=== PATIENT | male | born 1995 | race Caucasian/White ===

== ENCOUNTER 2016-08-09 20:08 | Emergency (ER) | payer BC, OTHER ==
[2016-08-09] MEDS ORDERED: CEPHALEXIN 500MG PREPACK#4 BTL TAKEHOME ONE (21:38)
--- NOTE | 2016-08-09 21:39 | EDPHY ---
H & P Stated Complaint: LEFT HAND LACERATION Time Seen by Provider: 08/09/16 20:30 HPI/ROS: CHIEF COMPLAINT: Left hand laceration HISTORY OF PRESENT ILLNESS: 21-year-old male presents emergency department with a laceration to the palm of his left hand. Patient was rock climbing and sustained a laceration to his hand that was in a crack. This was a pressure and ripping injury. Patient denies numbness or tingling in his hand. He is [id number], he denies other complaints. Patient reports his tetanus is up-to-date. Source: Patient Exam Limitations: No limitations - Personal History Current Tetanus/Diphtheria Vaccine: Yes Current Tetanus Diphtheria and Acellular Pertussis (TDAP): Yes - Medical/Surgical History Hx Asthma: No Hx Chronic Respiratory Disease: No Hx Diabetes: No Hx Cardiac Disease: No Hx Renal Disease: No Hx Cirrhosis: No Hx Alcoholism: No Hx HIV/AIDS: No Hx Splenectomy or Spleen Trauma: No Other PMH: DENIES - Social History Smoking Status: Current every day smoker - Physical Exam Exam: GEN: Awake, alert, oriented, no acute distress RESP: nl resp effort MSK: Right hand with full active range of motion against resistance SKIN: 2 cm superficial laceration/maceration to palm of left hand. No visible tendon. Constitutional: Initial Vital Signs Temperature (C) 37.0 C 08/09/16 20:16 Heart Rate 96 08/09/16 20:16 Respiratory Rate 18 08/09/16 20:16 Blood Pressure 109/52 L 08/09/16 20:16 O2 Sat (%) 96 08/09/16 20:16 O2 Delivery Mode Room Air Allergies/Adverse Reactions: No Known Allergies Allergy (Unverified 08/09/16 20:18) Home Medications: Medication Instructions Recorded Cephalexin [Keflex] 500 mg PO TID 4 Days 08/09/16 Medical Decision Making Procedures: Procedure: Laceration repair. Verbal consent was obtained from the patient. The 2 cm laceration on the left hand was anesthetized using 1% lidocaine with epinephrine. The wound was carefully irrigated by the emergency department field support technician. Next, the wound was prepped and draped in sterile fashion and explored to its base with a gloved finger. There were no deep structures involved. No tendon injury was identified. No vascular injury was identified. No foreign bodies were identified. The wound was repaired with 5.0 Prolene, 5 simple interrupted sutures. The wound repair was simple. Multiple wound margins required revising. The procedure was performed by myself. Tetanus and antibiotic status were addressed. Departure - Departure Disposition: Home, Routine, Self-Care Clinical Impression: Laceration of left hand Qualifiers: Encounter type: initial encounter Foreign body presence: without foreign body Qualified Code(s): S61.412A - Laceration without foreign body of left hand, initial encounter Condition: Good Instructions: Cephalexin (By mouth), Laceration (ED) Additional Instructions: Take antibiotics as prescribed, return to the emergency department in 5 days for suture removal, return sooner for any signs of infection. Prescriptions: Cephalexin [Keflex] 500 mg PO TID 4 Days
[2016-08-09 21:55] VITALS: BP 111/63; PULSE 86; RESP 16; TEMP 98.1; O2SAT 98
== END 2016-08-09 21:54 | disposition home or self-care (01) ==
PROC: 0HQGXZZ Repair Left Hand Skin, External Approach (ICD-10-PCS; principal; 2016-08-09)
DX: S61.412A Laceration without foreign body of left hand, initial encounter (principal); F17.200 Nicotine dependence, unspecified, uncomplicated; W22.8XXA Striking against or struck by other objects, initial encounter; Y99.8 Other external cause status; Y93.31 Activity, mountain climbing, rock climbing and wall climbing